=== PATIENT | female | born 1955 ===

== ENCOUNTER 2017-03-22 21:07 | Emergency (ER) | payer MEDICARE ==
[2017-03-22 21:20] VITALS: BMI 31.5
[2017-03-22 21:31] VITALS: TEMP 99.5
[2017-03-22] MEDS ORDERED: Labetalol 5 mg/ml Inj 20ML IVP STA (21:41)
--- NOTE | 2017-03-22 21:50 | ED PDOC ---
Arrival/HPI - General Chief Complaint: High Blood Pressure Time Seen by Provider: 03/22/17 21:20 Historian: Patient - History of Present Illness Narrative History of Present Illness (Text): 03/22/17 21:49 A 61 year old female, whose past medical history includes hypertension, fibromyalgia and hypercholesterolemia, presents to the emergency department complaining of shortness of breath, diaphoresis and elevated blood pressure for the past two hours. Patient reports she went to PMD today who advised patient to take medication. Patient notes a slight headache that developed yesterday, but currently resolved. Also notes similar symptoms in the past. Reports tingling in bilateral upper extremities but denies any chest pain, visual changes, numbness in extremities or any other complaints at this time. PMD: Dr. Ferguson Time/Duration: 1-3 hours Symptom Onset: Sudden Symptom Course: Unchanged Activities at Onset: Rest Context: Home Past Medical History - Provider Review Nursing Documentation Reviewed: Yes - Infectious Disease Hx of Infectious Diseases: None - Tetanus Immunization Tetanus Immunization: Unknown - Cardiac Hx Hypertension: Yes - Pulmonary Hx Respiratory Disorders: No - Neurological Hx Neurological Disorder: No (FIBROMYALGIA ,HAD SHINGLES) - HEENT Hx HEENT Disorder: Yes (WEARS RX GLASSES) Hx Glaucoma: Yes - Renal Hx Renal Disorder: Yes Hx Kidney Stones: Yes - Endocrine/Metabolic Hx Hypothyroidism: Yes - Hematological/Oncological Hx Blood Disorders: No (HYPERCALCEMIA) - Integumentary Hx Dermatological Disorder: No - Musculoskeletal/Rheumatological Hx Arthritis: Yes - Gastrointestinal Hx Gastrointestinal Disorders: Yes Hx Gastroesophageal Reflux: Yes - Genitourinary/Gynecological Hx Genitourinary Disorders: No - Psychiatric Hx Anxiety: Yes Hx Depression: Yes Hx Substance Use: No - Surgical History Hx Orthopedic Surgery: Yes (B/L FEET) - Anesthesia Hx Anesthesia: Yes Hx Anesthesia Reactions: No Hx Malignant Hyperthermia: No - Suicidal Assessment Feels Threatened In Home Enviroment: No Family/Social History - Physician Review Nursing Documentation Reviewed: Yes Family/Social History: No Known Family HX Smoking Status: Never Smoked Hx Alcohol Use: No Hx Substance Use: No Hx Substance Use Treatment: No Allergies/Home Meds Allergies/Adverse Reactions: Allergies No Known Allergies Allergy (Verified 03/22/17 21:20) Home Medications: Home Meds Medication Instructions Recorded Confirmed Levothyroxine [Synthroid] 0.1 mg PO DAILY 02/18/14 03/22/17 Lisinopril 40 mg PO DAILY 02/18/14 03/22/17 Amitriptyline HCl [Amitriptyline 10 mg PO DAILY 03/22/17 03/22/17 HCl] Simvastatin [Zocor] 40 mg PO DAILY 03/22/17 03/22/17 amLODIPine [Norvasc] 5 mg PO DAILY 03/22/17 03/22/17 traMADol [Ultram] 50 mg PO PRN PRN 03/22/17 03/22/17 Review of Systems - Physician Review All systems were reviewed & negative as marked: Yes - Review of Systems Eyes: absent: Vision Changes Respiratory: SOB Cardiovascular: absent: Chest Pain Neurological: Headache Endocrine: Diaphoresis Physical Exam Vital Signs Reviewed: Yes Vital Signs Temp Pulse Resp BP Pulse Ox 03/22/17 23:10 67 16 143/94 H 98 03/22/17 22:43 171/96 H 03/22/17 22:04 69 151/98 H 03/22/17 21:38 151/98 H 03/22/17 21:26 99.5 F 03/22/17 21:25 80 27 H 158/109 H 5 L Blood Pressure: Hypertensive Pulse: Bradycardic Respiratory Rate: Tachypneic Appearance: Positive for: Well-Appearing, Non-Toxic, Other (diaphoretic) Pain Distress: None Mental Status: Positive for: Alert and Oriented X 3 - Systems Exam Head: Present: Atraumatic, Normocephalic Pupils: Present: PERRL Extroacular Muscles: Present: EOMI Conjunctiva: Present: Normal Mouth: Present: Moist Mucous Membranes Neck: Present: Normal Range of Motion Respiratory/Chest: Present: Clear to Auscultation, Good Air Exchange. No: Respiratory Distress, Accessory Muscle Use Cardiovascular: Present: Regular Rate and Rhythm, Normal S1, S2. No: Murmurs Abdomen: Present: Normal Bowel Sounds. No: Tenderness, Distention, Peritoneal Signs Back: Present: Normal Inspection Upper Extremity: Present: Normal Inspection. No: Cyanosis, Edema Lower Extremity: Present: Normal Inspection. No: Edema Neurological: Present: GCS=15, CN II-XII Intact, Speech Normal Skin: Present: Warm, Dry, Normal Color. No: Rashes Psychiatric: Present: Alert, Oriented x 3, Normal Insight, Normal Concentration Medical Decision Making ED Course and Treatment: 03/22/17 21:46 EKG: Ordered, reviewed, and independently interpreted the EKG. Rate : 77 BPM Rhythm : NSR Interpretation : Normal axis, no acute ischemia 1130pm the pts BP has improved and she is feeling better. I did express concern over her diaphoresis initially (now gone) but she says she gets sweaty "all the time." I discussed admission for observation but she does not wish to stay. will f/u w pcp on Saturday and return if worse. - Lab Interpretations Lab Results: 03/22/17 21:30 03/22/17 21:30 Lab Results 03/22/17 22:40: Urine Color Yellow, Urine Appearance Clear, Urine pH 8.0, Ur Specific [place] 1.010, Urine Protein Negative, Urine Glucose (UA) Negative, Urine Ketones Negative, Urine Blood Negative, Urine Nitrate Negative, Urine Bilirubin Negative, Urine Urobilinogen 0.2, Ur Leukocyte Esterase Trace H, Urine RBC 0 - 2, Urine WBC 1 - 3, Ur Epithelial Cells 1 - 3 03/22/17 21:30: Sodium 141, Potassium 4.3, Chloride 100, Carbon Dioxide 29, Anion Gap 16, BUN 15, Creatinine 0.8, Est GFR ( Amer) > 60, Est GFR (Non- Af Amer) > 60, Random Glucose 103, Calcium 9.7, Total Bilirubin 0.5, AST 33, ALT 29, Alkaline Phosphatase 102, Troponin I < 0.01, NT-Pro-B Natriuret Pep 99.7 , Total Protein 8.2, Albumin 4.4, Globulin 3.7, Albumin/Globulin Ratio 1.2 03/22/17 21:30: WBC 6.5, RBC 4.83, Hgb 14.1, Hct 41.8, MCV 86.5, MCH 29.2, MCHC 33.7, RDW 13.9, Plt Count 193, MPV 12.7 H, Neutrophils % (Manual) 35 L, Lymphocytes % (Manual) 55 H, Atypical Lymphs % 2 H, Monocytes % (Manual) 8 H, Platelet Evaluation Normal I have reviewed the lab results: Yes - RAD Interpretation Radiology Orders: 03/22/17 21:40 CHEST PORTABLE [RAD] Stat - EKG Interpretation Interpreted by ED Physician: Yes Type: 12 lead EKG - Medication Orders Current Medication Orders: Discontinued Medications Labetalol HCl (Trandate) 10 mg IVP STAT STA Stop: 03/22/17 21:42 Last Admin: 03/22/17 22:04 Dose: 10 mg Nitroglycerin (Nitro-Bid 2% Oint) 1 ea TOP STAT STA Stop: 03/22/17 22:54 Last Admin: 03/22/17 23:16 Dose: 1 ea - Scribe Statement The provider has reviewed the documentation as recorded by the Ivisibcarlitos Horner Provider Scribe Attestation: All medical record entries made by the Scribe were at my direction and personally dictated by me. I have reviewed the chart and agree that the record accurately reflects my personal performance of the history, physical exam, medical decision making, and the department course for this patient. I have also personally directed, reviewed, and agree with the discharge instructions and disposition. Disposition/Present on Arrival - Present on Arrival Any Indicators Present on Arrival: No History of DVT/PE: No History of Uncontrolled Diabetes: No Urinary Catheter: No History of Decub. Ulcer: No History Surgical Site Infection Following: None - Disposition Have Diagnosis and Disposition been Completed?: Yes Diagnosis: High blood pressure Disposition: HOME/ ROUTINE Disposition Time: 23:31 Condition: IMPROVED Forms: [employer] (Thai)
[2017-03-22 21:58] LABS: HEMOGLOBIN 14.1 gm/dL (12.0-16.0); MEAN CELL VOLUME 86.5 fL (80.0-105.0); MEAN CORPUSCULAR HEMOGLOBIN 29.2 pg (25.0-35.0); MEAN CORPUSCULAR HGB CONC 33.7 g/dl (31.0-37.0); MEAN PLATELET VOLUME 12.7 fl (7.0-11.0); PLATELET COUNT 193 10^3/uL (120.0-450.0); RBC 4.83 10^6/uL (3.5-6.1); RED CELL DISTRIBUTION WIDTH 13.9 % (11.5-14.5); WHITE BLOOD COUNT 6.5 10^3/ul (4.5-11.0)
[2017-03-22 22:20] LABS: ALB/GLOB RATIO 1.2 (1.1-1.8); ALBUMIN 4.4 g/dL (3.0-4.8); ALT/SGPT 29 U/L (7-56); AST/SGOT 33 U/L (15-39); BLOOD UREA NITROGEN 15 mg/dL (7-21); CALCIUM 9.7 mg/dL (8.4-10.5); GFR AFRICAN-AMERICAN > 60; GFR NON-AFRICAN AMERICAN > 60
[2017-03-22 22:31] LABS: B-TYPE NATRIURETIC PEPTIDE 99.7 pg/mL (0-450)
[2017-03-22 22:36] LABS: ATYPICAL LYMPHOCYTE 2 % (0.0-0.0); LYMPHOCYTE 55 % (22.0-35.0); MONOCYTE 8 % (1.0-6.0); NEUTROPHIL 35 % (50.0-70.0); PLATELET ESTIMATE NORMAL (NORMAL); TROPONIN I < 0.01 ng/mL
[2017-03-22 22:44] LABS: URINE BILIRUBIN NEGATIVE (NEGATIVE); URINE BLOOD NEGATIVE (NEGATIVE); URINE GLUCOSE (UA) NEGATIVE (NEGATIVE); URINE LEUKOCYTE ESTERASE TRACE Leu/uL (NEGATIVE); URINE NITRATE NEGATIVE (NEGATIVE); URINE PROTEIN NEGATIVE mg/dL (<30 mg/dL); URINE UROBILINOGEN 0.2 E.U./dL (<1 E.U./dL)
[2017-03-22 22:45] LABS: URINE APPEARANCE CLEAR (CLEAR); URINE COLOR YELLOW (YELLOW)
[2017-03-22] MEDS ORDERED: Nitroglycerin 2% Ointment Foilpak UD TOP STA (22:53)
[2017-03-22 23:11] VITALS: RESP 16
[2017-03-22 23:17] LABS: URINE RBC 0 - 2 /hpf (0-2)
[2017-03-22 23:58] VITALS: BP 159/90; PULSE 80; O2SAT 95
--- NOTE | 2017-03-23 11:02 | CARD ---
APPROVED REPORT EKG Measurement Heart [id number] IA [id number] <Conclusion> Normal sinus rhythm LAD No change
--- NOTE | 2017-03-23 12:12 | RAD ---
HISTORY: sob COMPARISON: 02/18/2014 FINDINGS: LUNGS: No active pulmonary disease. PLEURA: No significant pleural effusion identified, no pneumothorax apparent. CARDIOVASCULAR: Normal. OSSEOUS STRUCTURES: No significant abnormalities. VISUALIZED UPPER ABDOMEN: Normal. OTHER FINDINGS: None. IMPRESSION: No active disease.
== END 2017-03-22 23:57 | disposition home or self-care (01) ==
LOC: ED 21:07
DX: I10 Essential (primary) hypertension (principal); E03.9 Hypothyroidism, unspecified; M79.7 Fibromyalgia; E78.00 Pure hypercholesterolemia, unspecified